=== PATIENT | female | born 1945 | race Two or more races ===

== ENCOUNTER 2025-01-06 06:52 | Day surgery (SDC) | payer OTHER ==
[2024-12-11 12:51] VITALS: BP 144/86
[~2025-01-06] VITALS: Ht 154.9 cm; Wt 60.3 kg
[~2025-01-06 06:52] MED LIST: COLACE100 MG PO; KETOROLAC TROMET5 M1; ONDANSETRON ODT4 MG SL; PEPCID40 MG PO; PROLIA60 MG/1 ML; TRAM1TAB98 PO; VITAMIN C 500500 M1 PO; VITAMIN D-40010 MCG PO; ZYNCOF 20-400120 ML PO
[2025-01-06] MEDS ORDERED: LIDOCAINE HCL 1%/EPINEPHRINE 20ML VIAL IJ ONE (15:15)
[2025-01-06] MEDS ORDERED: HEMOSTATIC MATRIX 1 KIT KIT TOP ONE (15:15)
[2025-01-06] MEDS ORDERED: CEFTRIAXONE SODIUM 2,000 MG VIAL IV SCH (15:15)
[2025-01-06] MEDS ORDERED: DIBUCAINE 30 GM TUBE RECTAL ONE (15:15)
[2025-01-06] MEDS ORDERED: BUPIVACAINE HCL 30 ML VIAL IJ ONE (15:15)
[2025-01-06] MEDS ORDERED: POVIDONE-IODINE 118 ML BOTT TOP ONE (15:15)
[2025-01-06] MEDS ORDERED: METRONIDAZOLE/SODIUM CHLORIDE 500 MG/100 ML PIGGYBACK IV SCH (15:15)
[2025-01-06] MEDS ORDERED: MORPHINE SULFATE 4 MG/ML VIAL IV ONE (17:30)
== END 2025-01-06 18:55 | disposition home or self-care (01) ==
LOC: CIR.AMB 06:52
PROVIDERS: ATTEND Surgery
DX: K64.2 Third degree hemorrhoids (principal); K64.4 Residual hemorrhoidal skin tags; K62.89 Other specified diseases of anus and rectum; K62.5 Hemorrhage of anus and rectum; Z88.2 Allergy status to sulfonamides

== ENCOUNTER 2025-01-12 15:43 | Emergency (ER) | payer OTHER ==
[~2025-01-12] VITALS: Ht 154.9 cm; Wt 59.0 kg
[2025-01-12 18:57] LABS: BASO % 0.1 % (0.1-1.2); EOS # 0.05 (0.04-0.54); EOS % 0.6 % (0.7-7.0); LYMPH # 1.78 (1.18-3.74); LYMPH % 22.4 % (19.3-53.1); MEAN PLATELET VOLUME 9.60 fl (9.4-12.4); MONO # 0.57 (0.24-0.82); MONO % 7.2 % (4.7-12.5); NEUT # 5.52 (1.56-6.13); NEUT % 69.4 % (34.0-71.1); RED CELL DISTRIBUTION WIDTH 16.3 % (11.6-14.4)
[2025-01-12 19:40] LABS: URINE APPEARANCE Clear; URINE BILIRRUBIN Negative (NEGATIVE); URINE BLOOD Trace; URINE COLOR Yellow; URINE GLUCOSE Negative (NEGATIVE); URINE KETONE 15 (NEGATIVE); URINE LEUKOCYTE Negative; URINE NITRATE Negative; URINE PROTEIN Negative (NEGATIVE); URINE UROBILINOGEN 0.2 E.U./dl
[2025-01-12 19:44] LABS: URINE BACTERIA 9.5 uL (0.0-1933); URINE EPITHELIAL CELLS 4.1 uL (0.0-38.8); URINE RBC 17.7 uL (0.0-20.8); URINE WBC 1.8 uL (0.0-23.2)
[2025-01-12 19:48] LABS: URINE CAST 0.29 uL (0.0-1.40)
== END 2025-01-12 20:07 | disposition home or self-care (01) ==
LOC: ER 15:43
PROVIDERS: Emergency Medicine
DX: R10.9 Unspecified abdominal pain (principal); R50.9 Fever, unspecified; Z88.2 Allergy status to sulfonamides